=== PATIENT | female | born 1975 | race Caucasian/White ===

== ENCOUNTER 2024-11-19 15:07 | Emergency (ER) | payer OTHER ==
[2024-11-19 16:30] LABS: PLATELET COUNT,PLT 331 K/uL (130-375); RED BLOOD CELL COUNT 4.29 M/uL (3.77-5.24); WHITE BLOOD CELL COUNT,WBC 7.6 K/uL (3.2-11.0)
[2024-11-19 16:43] LABS: BAND ABSOLUTE MAN 0.08 K/uL; BAND PERCENT MAN 1 % (5-11); LYMPHOCYTES ABSOLUTE MAN 0.53 K/uL (0.8-3.3); LYMPHOCYTES PERCENT MAN 7 % (24-44); MONOCYTES ABSOLUTE MAN 0.99 K/uL (0.20-0.90); MONOCYTES PERCENT MAN 13 % (2-6); NEUTROPHILS ABSOLUTE MAN 6.00 K/uL (1.0-7.6); SEG NEUTROPHILS PERCENT MAN 79 % (36-66)
[2024-11-19 16:44] LABS: APPEARANCE,URINE SLIGHTLY CLOUDY (CLEAR); GLUCOSE,URINE 100 mg/dL (NEGATIVE); OCCULT BLOOD,URINE NEGATIVE (NEGATIVE); SQUAMOUS EPITHELIAL CELLS,UR MANY /HPF; UROTHELIAL CELLS,URINE NOT SEEN /HPF
[2024-11-19 16:50] LABS: A/G RATIO 0.8 (1.2-2.2); ALANINE AMINOTRANSFERASE,ALT 514 U/L (12-78); BILIRUBIN TOTAL 21.7 mg/dL (0.2-1.0); BLOOD UREA NITROGEN,BUN 13 mg/dL (7-18); CARBON DIOXIDE,CO2 28 mmol/L (21-32); CHLORIDE,CL 99 mmol/L (100-108); CREATININE 0.6 mg/dL (0.6-1.0); EST CRCL DRUG DOSING (CG) 109.08 mL/min; ESTIMATED GFR 109 mL/min (>60); GLUCOSE RANDOM 115 mg/dL (74-106); POTASSIUM,K 3.3 mmol/L (3.6-5.2); PROTEIN TOTAL,TP 7.0 g/dL (6.4-8.2); SODIUM,NA 135 mmol/L (140-148)
[2024-11-19 16:51] LABS: ASPARTATE AMNIOTRANSFERASE,AST 298 U/L (15-37)
[2024-11-19 16:58] LABS: BILIRUBIN DIRECT > 16.00 mg/dL (0.0-0.2)
[2024-11-19] MEDS: Iopamidol 612 MG/ML 100 ML Bottle IV ONE (17:43)
== END 2024-11-19 19:04 | disposition home or self-care (01) ==
LOC: JP.ED 15:07
DX: R17 Unspecified jaundice (principal); E80.6 Other disorders of bilirubin metabolism; Z88.0 Allergy status to penicillin
CPT/HCPCS: 36415; 74177; 80053; 81001; 82248; 83690; 85025; 99285; Q9967